=== PATIENT | male | born 1970 | race Two or more races ===

== ENCOUNTER 2020-04-25 23:00 | Emergency (ER) | payer OTHER ==
[~2020-04-25] VITALS: Ht 167.6 cm; Wt 72.6 kg
[~2020-04-25 23:00] MED LIST: OSEL75CA PO
[2020-04-26] MEDS ORDERED: CIPRO500 MG PO (04:29)
[2020-04-26] MEDS ORDERED: KETO10TA2 PO (04:29)
== END 2020-04-26 | disposition home or self-care (01) ==
LOC: ER 23:00
DX: S01.02XA Laceration with foreign body of scalp, initial encounter (principal); S13.4XXA Sprain of ligaments of cervical spine, initial encounter; V49.9XXA Car occupant (driver) (passenger) injured in unspecified traffic accident, initial encounter; Y93.89 Activity, other specified; Y92.488 Other paved roadways as the place of occurrence of the external cause; Y99.8 Other external cause status

== ENCOUNTER 2020-05-05 13:44 | Emergency (ER) | payer OTHER ==
[~2020-05-05] VITALS: Ht 167.6 cm; Wt 54.4 kg
[~2020-05-05 13:44] MED LIST changes: +CIPRO500 MG PO; +KETO10TA2 PO
== END 2020-05-05 15:00 | disposition home or self-care (01) ==
LOC: ER 13:44
DX: Z48.02 Encounter for removal of sutures (principal)